=== PATIENT | female | born 1940 | race Caucasian/White ===

== ENCOUNTER 2016-07-01 07:38 | Emergency (ER) | payer MEDICARE, BC ==
[~2016-07-01 07:38] MED LIST: ADULT LOW DOSE81 MG PO; FISH OIL 1,2001 CAP PO; PROPOXY-N-APAP1 EACH PO; SIMVASTATIN40 MG PO; VITAMIN D 22000 UNIT PO
[2016-07-01] MEDS ORDERED: PREDNISONE20 M1 PO (08:18)
== END 2016-07-01 08:30 ==
LOC: EDMED 07:38
DX: T78.40XA Allergy, unspecified, initial encounter (principal); F17.200 Nicotine dependence, unspecified, uncomplicated
CPT/HCPCS: J7512